=== PATIENT | female | born 1990 | race Caucasian/White ===

== ENCOUNTER → 2018-04-21 | Outpatient (CLI) | payer BC, OTHER | LOC: OD 16:28 | PROVIDERS: ATTEND Otolaryngology | DX: J30.9 Allergic rhinitis, unspecified (principal) | CPT/HCPCS: 36415; 82785; 86003 ==

== ENCOUNTER 2018-10-07 09:27 | Day surgery (SDC) | payer OTHER ==
[~2018-10-07 09:27] MED LIST: AMPICILLIN SODIUM 2 GM in NORMAL SALINE 100 ML IV PRN
[2018-10-07] MEDS ORDERED: COCAINE HCL 4% TOPICAL SOLN 4 ML ONE (10:44)
[2018-10-07] MEDS ORDERED: OXYMETAZOLINE HCL 0.05% NASAL SPRAY 15 ML BOTTLE ONE (10:45)
[2018-10-07] MEDS ORDERED: LIDOCAINE 2%/EPINEPHRINE INJ 1.7 ML CARTRIDGE ONE (10:45)
--- NOTE | 2018-10-07 12:30 | SURGICARE OPERATIVE REPORT E ---
[facility] NAME: DONNIE TYLER AGE: 28Y DATE OF SURGERY: 10/07/2018 ROOM: HISTORY: A 28-year-old female with a history of eustachian tube dysfunction, adenoid hypertrophy and chronic tonsillitis. Presents today for an adenotonsillectomy and inferior turbinate reduction. Informed consent was obtained from the patient. PREOPERATIVE DIAGNOSIS: 1. CHRONIC TONSILLITIS. 2. EUSTACHIAN TUBE DYSFUNCTION. 3. ADENOID HYPERTROPHY. POSTOPERATIVE DIAGNOSIS: 1. CHRONIC TONSILLITIS. 2. EUSTACHIAN TUBE DYSFUNCTION. 3. ADENOID HYPERTROPHY. OPERATION: 1. Adenotonsillectomy. 2. Inferior turbinate reduction, right side. 3. Inferior turbinate reduction, left side. 2. Adenoidectomy. SURGEON: CARON SHER MD ANESTHESIA: General via endotracheal intubation. DESCRIPTION OF PROCEDURE: After receiving informed consent from the patient, she was taken to the operating room and placed supine on the operating room table. After successful induction intubation by anesthesia, pledgets soaked with 4% cocaine placed into each nasal cavity for approximately 5 minutes, then the inferior turbinates and nasal septum was injected with 2% Xylocaine and 100,000 epinephrine. Pledgets were replaced. Patient then turned 90 degrees, placed in Trendelenburg. A shoulder roll was placed, head rest placed, and McIvor mouth gag inserted atraumatically into the oral cavity. This was then opened up. Soft palate was palpated and found to be normal. Red catheters were inserted down each nasal cavity and brought out to elevate the soft palate. A mirror was used to view the nasopharynx. The adenoid pad was found to be 3+ in size. Next, using the PEAK system, the adenoidectomy was performed with attention to the eustachian tube orifices. Gaetano's tonsils were present and those were removed. A nasopharyngeal pack was placed. Attention was then directed to the right tonsil which was grasped with a tonsil tenaculum, pulled medially and dissected free from its tonsillar fossa using Bovie electrocautery. Hemostasis was obtained with suction Bovie electrocautery. A similar procedure was done on the left side. Both tonsils were removed. Tonsils were 2+ in size. Next, the nasopharyngeal pack was removed and nasopharynx was dry. Next, the nasopharynx along with the oral cavity and oropharynx were irrigated with copious amounts of normal saline. No bleeding was noted. Orogastric tube inserted into stomach. Gastric contents were aspirated. McIvor mouth gag was then let down and reopened. No bleeding was noted. This, along with the red catheters were removed from the patient. The patient was then turned towards anesthesia. The cottonoids from the left side were removed. Using the Celon, intramural cauterization was performed on the left inferior turbinate and then the turbinate was then medialized and lateralized using a Angel elevator. A cotton-soaked pledget was then placed into that left nasal cavity. Attention was then directed to the right side where the inferior turbinate reduction was performed in a similar fashion. Again, an Afrin-soaked pledget was placed into the right nasal cavity. The pledgets were secured and tied in front of the nose. Patient was then given back to Anesthesia who successfully extubated the patient without any complications. The estimated blood loss about 10 mL; fluids 800 mL crystalloid. Patient transferred to the Postanesthesia Care Unit in stable condition, spontaneous respirations, no complications. DICTATING PHYSICIAN: CARON SHER M.D. [id number] PHY#: [id number] ID: [id number] JOB#: [id number] ACCT: [id number] cc:CARON SHER MD > MTDD
[2018-10-07] MEDS ORDERED: FENTANYL CITRATE INJ/PF 100 MCG/2 ML AMPUL ONE (12:47)
[2018-10-07] MEDS ORDERED: PROMETHAZINE HCL INJ 25 MG/1 ML VIAL ONE (13:06)
== END 2018-10-07 14:37 | disposition home or self-care (01) ==
LOC: SC 09:27
PROVIDERS: ATTEND Otolaryngology
DX: J35.01 Chronic tonsillitis (principal); J35.2 Hypertrophy of adenoids; J34.3 Hypertrophy of nasal turbinates; H69.83 Other specified disorders of Eustachian tube, bilateral
CPT/HCPCS: 88304 ×2; 42821; 30802; J0290; J3490 ×3; J3010; J2550; J7050; 170